=== PATIENT | female | born 1970 | race Caucasian/White ===

== ENCOUNTER 2016-06-10 10:39 | Day surgery (SDC) | payer BC, OTHER ==
[~2016-06-10 10:39] MED LIST: SODIUM CHLORIDE 0.9% 1,000 ML IV SCH
[2016-06-10 11:01] VITALS: BP 118/82
[2016-06-10] MEDS ORDERED: IV FLUID CONTINUATION 1,000 ML IV ONE (12:15)
[2016-06-10 14:34] VITALS: PULSE 74; RESP 16
--- NOTE | 2016-06-10 18:10 | CE ---
DATE OF SERVICE: TILT TABLE TEST A 46-year-old female referred by Dr. Paredes for a tilt table test. Baseline blood pressure 123/81 mmHg. Baseline heart rate 87 beats a minute. The patient was tilted upright at an angle of 70 degrees per protocol. There was no change in her blood pressure. There was a mild increase in heart rate to about 10 to 20 points within the first 10 minutes. Maximum heart rate in the first 10 to 12 minutes was 104 beats a minute. Subsequently later her heart rate increased to about 115 beats a minute, but her blood pressure was normal. She just complained of weakness. There was no evidence for neurocardiogenic syncope. No evidence for dysautonomia. She was laid down supine at the end of the procedure. IMPRESSION: 1. No evidence for neurocardiogenic syncope. 2. No clear-cut evidence for orthostatic intolerance, although there was an increase in heart rate within the first 10 minutes up to maximum of 15 to 20 beats per minute.
== END 2016-06-10 13:45 | disposition home or self-care (01) ==
LOC: CATHEP 10:39 → EDSEX 12:20 → CATHEP 13:45
PROVIDERS: ATTEND Internal Medicine Clinical Cardiac Electrophysiology
DX: R55 Syncope and collapse (principal)
CPT/HCPCS: 81025; 93660